=== PATIENT | male | born 1975 | race Caucasian/White ===

== ENCOUNTER 2019-11-13 13:19 | Emergency (ER) | payer OTHER ==
[2019-11-13 13:32] VITALS: BP 144/88; PULSE 65; TEMP 98.4; BMI 30.2
[2019-11-13] MEDS ORDERED: DEXAMETHASONE SOD PHOSPHATE 10 MG/1 ML VIAL IM ONE (13:33)
[2019-11-13] MEDS ORDERED: DEXAMETHASONE SOD PHOSPHATE 10 MG/1 ML VIAL ONE (13:40)
--- NOTE | 2019-11-13 13:42 | PDOC ---
History of Present Illness - General Chief Complaint: Pain Stated Complaint: RIGTH FACE PAIN Time Seen by Provider: 11/13/19 13:33 History Source: Patient Exam Limitations: No Limitations - History of Present Illness Initial Comments: 11/13/19 [age] y/o male with right side of face pain and swelling. States went to dentist last week and reated for tooth pain and placed on Amoxicillin. [place] better initially but now worse. OTC medications not working. Denies headache, fever or chills. Has teeth pain and sinus pressure. No N/V/d/c. No cough or SOB. Having ear pressure b/l as well. Past History - Past Medical History Allergies/Adverse Reactions: Allergies Allergy/AdvReac Type Severity Reaction Status Date / Time No Known Allergies Allergy Verified 11/13/19 13:34 Home Medications: Ambulatory Orders Amox-Tr/K Cl [Augmentin - 875Mg Tablet] 1 tab PO BID #20 tablet 11/13/19 Amoxicillin - [Amoxicillin 500mg Capsule -] 500 mg PO TID 11/13/19 Dexamethasone [Decadron] 4 mg PO TID #15 tablet 11/13/19 COPD: No Other medical history: MIGRAINE - Psycho Social/Smoking Cessation Hx Smoking History: Never smoked Hx Alcohol Use: Yes (occasionally) Drug/Substance Use Hx: No Review of Systems - Review of Systems Able to Perform ROS?: Yes Is the patient limited [place] proficient: No Constitutional: No: Chills, Fever HEENTM: Yes: Dental Problems, Other (sinus pressure) Respiratory: No: Cough, Shortness of Breath Cardiac (ROS): No: Chest Pain ABD/GI: No: Nausea, Vomiting Neurological: No: Headache All Other Systems: Reviewed and Negative *Physical Exam - Vital Signs Last Vital Signs Temp Pulse Resp BP Pulse Ox 98.4 F 65 18 144/88 99 11/13/19 13:19 11/13/19 13:19 11/13/19 13:19 11/13/19 13:19 11/13/19 13:19 - Physical Exam General Appearance: Yes: Nourished, Appropriately Dressed. No: Apparent Distress HEENT: positive: EOMI, CURT, Normal Voice, Symmetrical, Pharynx Normal. negative: Normal ENT Inspection (Right maxiallary sinus pressure, no swelling, no frontal sinus pressure noted), Pharyngeal Erythema Neck: positive: Trachea midline, Normal Thyroid, Supple. negative: Tender, Rigid, Carotid bruit Respiratory/Chest: positive: Lungs Clear, Normal Breath Sounds. negative: Chest Tender, Respiratory Distress Cardiovascular: positive: Regular Rhythm, Regular Rate, S1, S2. negative: Edema , JVD, Murmur Vascular Pulses: Femoral (R): 4+, Femoral (L): 4+, Carotid (R): 4+, Carotid (L) : 4+, Dorsalis-Pedis (R): 4+, Doralis-Pedis (L): 4+ Gastrointestinal/Abdominal: positive: Normal Bowel Sounds, Flat, Soft. negative : Tender, Organomegaly Lymphatic: negative: Adenopathy, Tenderness, Other Musculoskeletal: positive: Normal Inspection. 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 Discharge - Discharge Information Problems reviewed: Yes Clinical Impression/Diagnosis: Sinusitis Qualifiers: Sinusitis location: maxillary Chronicity: acute Recurrence: not specified as recurrent Qualified Code(s): J01.00 - Acute maxillary sinusitis, unspecified Condition: Good Disposition: HOME - Admission No - Follow up/Referral - Patient Discharge Instructions Patient Printed Discharge Instructions: DI for Sinusitis Additional Instructions: Stop Amoxicillin Augmentin 875 mg 2x/day for 10 days Decadron 4 mg 3x/day for 5 days Motrin, rest If worsen return to ER - Post Discharge Activity
== END 2019-11-13 13:55 | disposition home or self-care (01) ==
LOC: FER 13:19
PROC: 3E023GC Introduction of Other Therapeutic Substance into Muscle, Percutaneous Approach (ICD-10-PCS; principal; 2019-11-13)
DX: J01.00 Acute maxillary sinusitis, unspecified (principal)
CPT/HCPCS: 99282-25; J1100

== ENCOUNTER 2020-01-12 15:46 | Emergency (ER) | payer OTHER ==
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
[2020-01-12 16:01] VITALS: BP 144/97; PULSE 62; TEMP 97.7; BMI 29.5
[2020-01-12] MEDS ORDERED: AMOX TR/POT CLAV 875MG/125MG TABLETS (FP) PO ONE (16:14)
[2020-01-12] MEDS ORDERED: DEXAMETHASONE 4 MG TABLET (FP) PO ONE (16:14)
[2020-01-12] MEDS ORDERED: DEXAMETHASONE 4 MG TABLET (FP) ONE (16:23)
[2020-01-12] MEDS ORDERED: AMOX TR/POT CLAV 875MG/125MG TABLETS (FP) ONE ×2 (16:24→16:26)
== END 2020-01-12 16:30 | disposition home or self-care (01) ==
LOC: FER 15:46
DX: J01.01 Acute recurrent maxillary sinusitis (principal)
CPT/HCPCS: 99283-25

== ENCOUNTER 2020-02-08 16:58 | Emergency (ER) | payer OTHER ==
[2020-02-08 17:14] VITALS: BP 152/100; PULSE 65; TEMP 97.5; BMI 29.5
[2020-02-08] MEDS ORDERED: IBUPROFEN 600 MG TABLET (FP) PO ONE (17:30)
[2020-02-08] MEDS ORDERED: ACETAMINOPHEN 325 MG TABLET (FP) PO ONE (17:31)
[2020-02-08] MEDS ORDERED: ACETAMINOPHEN 325 MG TABLET (FP) ONE (17:41)
[2020-02-08 17:42] LABS: BASO % 0.7 % (0-2.0); EOS % 2.8 % (0-4.5); HEMOGLOBIN 16.1 GM/dl (11.7-16.9); LYMPH % 21.1 % (8-40); MCH 29.8 pg (25.7-33.7); MCHC 32.9 g/dl (32.0-35.9); MEAN CELL VOLUME 90.7 fl (80-96); MEAN PLT VOLUME 8.5 fl (7.5-11.1); MONO % 8.6 % (3.8-10.2); NEUT % 66.8 % (42.8-82.8); PLATELET COUNT 285 K/MM3 (134-434); RDW 13.7 % (11.9-15.9); WHITE BLOOD COUNT 7.5 K/mm3 (4.0-10.8)
[2020-02-08 17:50] LABS: ALBUMIN 4.2 g/dl (3.4-5.0); BILIRUBIN,TOTAL 0.5 mg/dl (0.2-1); CALCIUM 9.7 mg/dl (8.5-10); CREATININE 1.6 mg/dl (0.55-1.3); POTASSIUM 4.1 mmol/L (3.5-5.1); TOT PROT 7.6 g/dl (6.4-8.2)
[2020-02-08] MEDS ORDERED: CLINDAMYCIN 600MG PREMIX IVPB 600 MG/50 ML BAG IVPB ONE (18:45)
[2020-02-08] MEDS ORDERED: CLINDAMYCIN PHOSPHATE 600 MG/4 ML VIAL ONE (18:48)
[2020-02-08] MEDS ORDERED: LIDOCAINE HCL 2% (20ML MULTI-DOSE VIAL) ONE (19:44)
[2020-02-08] MEDS ORDERED: LIDOCAINE VISCOUS 2% ORAL/TOP 20 ML UNIT-DOSE CUP ONE (19:44)
== END 2020-02-08 21:35 | disposition home or self-care (01) ==
LOC: FER 16:58
DX: G50.1 Atypical facial pain (principal); K05.219 Aggressive periodontitis, localized, unspecified severity
CPT/HCPCS: 36415; 70487-TC; 80053; 85025; 99285-25; Q9967

== ENCOUNTER 2022-08-02 17:18 | Emergency (ER) | payer OTHER ==
[2022-08-02 17:30] VITALS: BP 145/73; PULSE 79; RESP 18; TEMP 98.2; BMI 31.7
== END 2022-08-02 18:45 | disposition home or self-care (01) ==
LOC: FER 17:18
DX: R21 Rash and other nonspecific skin eruption (principal)
CPT/HCPCS: 99281-25